=== PATIENT | female | born 1960 | race Caucasian/White ===

== ENCOUNTER → 2016-12-07 | Outpatient (CLI) | payer OTHER | END | disposition short-term general hospital (02) | LOC: CLPULM 10:53 | DX: J44.9 Chronic obstructive pulmonary disease, unspecified (principal); M54.5 Low back pain; G89.29 Other chronic pain; R91.1 Solitary pulmonary nodule; F41.9 Anxiety disorder, unspecified; F32.9 Major depressive disorder, single episode, unspecified; H72.92 Unspecified perforation of tympanic membrane, left ear; F10.99 Alcohol use, unspecified with unspecified alcohol-induced disorder ==